=== PATIENT | female | born 1990 | race Two or more races ===

== ENCOUNTER 2021-07-14 01:12 | Inpatient (IN) | payer MEDICAID ==
[~2021-07-14] VITALS: Ht 160 cm; Wt 55.5 kg
[2021-07-14 02:14] LABS: Urine Bacteria NONE SEEN /hpf (None Seen); Urine Blood TRACE /uL (Negative); Urine Mucus FEW (None Seen); Urine Specific Gravity 1.015 (1.001-1.035); Urine WBC 266 /hpf (0 - 5); Urine WBC Clumps PRESENT /hpf (None Seen)
[2021-07-14] MEDS ORDERED: cefTRIAXone SOD 1,000 MG VL IM ONE (02:15)
[2021-07-14] MEDS ORDERED: SODIUM CHLORIDE 0.9% 500 ML IV ONE (02:15)
[2021-07-14 02:34] LABS: Basophils # (auto) 0 10 ^3/uL (0-0.2); Basophils % (auto) 0.3 % (0.0-2.0); Eosinophils # (auto) 0 10 ^3/uL (0-0.8); Hematocrit 34.3 % (36.0-46.0); Hemoglobin 11.7 g/dL (12.2-16.2); Lymphocytes # (auto) 0.8 10 ^3/uL (0.4-5.4); Lymphocytes % (auto) 4.5 % (10.0-50.0); Mean Corpuscular Hemoglobin 29.1 pg (28.0-32.0); Mean Corpuscular Hgb Conc. 34.2 g/dL (32.0-36.0); Mean Corpuscular Volume 85.2 fL (80.0-100.0); Monocytes # (auto) 0.9 10 ^3/uL (0-1.3); Monocytes % (auto) 5.4 % (0.0-12.0); Neutrophils # (auto) 15.1 10 ^3/uL (1.6-8.6); Neutrophils % (auto) 89.8 % (37.0-80.0); Red Blood Cells 4.03 10^6/uL (4.0-5.20); Red Cell Distribution Width 14.6 % (11.8-14.3); White Blood Cell 16.8 10^3/uL (4.4-10.8)
[2021-07-14] MEDS ORDERED: cefTRIAXone 1GM/50ML D5W 50 ML IV ONE (02:45)
[2021-07-14 02:46] LABS: Albumin 2.6 g/dL (3.4-5.0); BUN/Creatinine Ratio 16.7; Calcium 8.5 mg/dL (8.5-10.1); Potassium 3.9 mmol/L (3.5-5.1)
[2021-07-14 02:49] LABS: Bilirubin, Total 0.6 mg/dL (0.2-1.0); Total Protein 6.7 g/dL (6.4-8.2)
[2021-07-14] MEDS ORDERED: PROMETHAZINE HCL 25 MG/ML 1ML IV ONE (03:00)
[2021-07-14] MEDS ORDERED: METOCLOPRAMIDE HCL 5MG/ml INJ 2ml VIAL IV PRN (07:15)
[2021-07-14] MEDS: SODIUM CHLORIDE 0.9% 1,000 ML IV SCH ×2 (07:44→15:15)
[2021-07-14] MEDS: ACETAMINOPHEN 325 MG TAB PO PRN ×3 (07:48→19:09)
[2021-07-14 12:00] VITALS: BP 93/69
[2021-07-14 12:37] VITALS: BP 93/69
[2021-07-14 16:00] VITALS: BP 113/73
[2021-07-14 21:44] VITALS: BP 112/71
[2021-07-15] MEDS: ACETAMINOPHEN 325 MG TAB PO PRN ×3 (01:27→19:45)
[2021-07-15] MEDS: SODIUM CHLORIDE 0.9% 1,000 ML IV SCH ×4 (01:28→23:52)
[2021-07-15] MEDS: cefTRIAXone 1GM/50ML D5W 50 ML IV SCH (03:01)
[2021-07-15 05:00] VITALS: BP 99/58
[2021-07-15 06:55] LABS: Basophils # (auto) 0 10 ^3/uL (0-0.2); Basophils % (auto) 0.3 % (0.0-2.0); Eosinophils # (auto) 0.1 10 ^3/uL (0-0.8); Eosinophils % (auto) 0.6 % (0.0-7.0); Hematocrit 31.1 % (36.0-46.0); Hemoglobin 10.7 g/dL (12.2-16.2); Lymphocytes # (auto) 1.4 10 ^3/uL (0.4-5.4); Lymphocytes % (auto) 12.7 % (10.0-50.0); Mean Corpuscular Hemoglobin 29.6 pg (28.0-32.0); Mean Corpuscular Hgb Conc. 34.3 g/dL (32.0-36.0); Mean Corpuscular Volume 86.1 fL (80.0-100.0); Monocytes # (auto) 1.2 10 ^3/uL (0-1.3); Monocytes % (auto) 10.6 % (0.0-12.0); Neutrophils # (auto) 8.4 10 ^3/uL (1.6-8.6); Neutrophils % (auto) 75.8 % (37.0-80.0); Red Blood Cells 3.62 10^6/uL (4.0-5.20); Red Cell Distribution Width 14.6 % (11.8-14.3); White Blood Cell 11.1 10^3/uL (4.4-10.8)
[2021-07-15 07:10] LABS: BUN/Creatinine Ratio 12.8; Calcium 7.9 mg/dL (8.5-10.1); Potassium 4.4 mmol/L (3.5-5.1)
[2021-07-15 07:13] LABS: Bilirubin, Total 0.2 mg/dL (0.2-1.0); Total Protein 5.7 g/dL (6.4-8.2)
[2021-07-15 09:00] VITALS: BP 105/65
[2021-07-15] MEDS ORDERED: CEPH-509 PO (12:04)
[2021-07-15 13:00] VITALS: BP 102/64
[2021-07-15 17:00] VITALS: BP 118/55
[2021-07-15 20:00] VITALS: BP 97/52
[2021-07-15 22:00] VITALS: BP 97/52
[2021-07-16] MEDS: cefTRIAXone 1GM/50ML D5W 50 ML IV SCH (03:23)
[2021-07-16] MEDS: ACETAMINOPHEN 325 MG TAB PO PRN (04:06)
[2021-07-16 05:13] VITALS: BP 95/59
[2021-07-16] MEDS: SODIUM CHLORIDE 0.9% 1,000 ML IV SCH (07:09)
[2021-07-16 09:00] VITALS: BP 100/57
[2021-07-16] MEDS ORDERED: PRENATAL VITAMIN TAB PO SCH (10:00)
== END 2021-07-16 13:37 | disposition home or self-care (01) | DRG 566 ==
LOC: ER 01:15 → TELE 07:11 → TELE-WESTW 10:45
PROVIDERS: ADMIT Nurse Practitioner; ATTEND Nurse Practitioner
DX: O23.02 Infections of kidney in pregnancy, second trimester (principal); Z20.822 Contact with and (suspected) exposure to COVID-19; Z3A.19 19 weeks gestation of pregnancy
CPT/HCPCS: 36415; 76805; 80053; 81001; 84702; 85025; 87040; 87426; 96365; 96375; G0378; J0696